=== PATIENT | female | born 1985 | race Two or more races ===

== ENCOUNTER 2019-04-14 15:53 | Emergency (ER) | payer BC, MEDICARE, OTHER, MEDICAID ==
--- NOTE | 2019-04-14 16:07 | ER Document Report ---
ED Medical Screen (RME) - General Chief Complaint: Leg Pain Stated Complaint: LEFT LEG PAIN Time Seen by Provider: 04/14/19 16:05 Primary Care Provider: JOSE E NUÑEZ MD [Primary Care Provider] - Follow up as needed - [facility] Notes: 04/14/19 16:05 Patient is a 34-year-old female who presents complaining of left anterior lower barron pain that is been ongoing for a week. Denies injury. Patient is able to ambulate without difficulty. No history of DVT. Patient does not have any posterior calf tenderness or medial leg pain. Pain is specifically to the anterior lower leg. No fever. No known injury. I have treated and performed a rapid initial assessment of this patient. A comprehensive ED assessment and evaluation of the patient, analysis of test results and completion of medical decision making process will be conducted by additional ED providers. PHYSICAL EXAMINATION: GENERAL: Well-appearing, well-nourished and in no acute distress. A&Ox4. Answers questions appropriately. Lt leg: there is pinpoint tenderness to the lower anterior leg to the tibia itself. Nothing medially or posteriorly to the leg. N/V intact distal. No LE asymmetry. Lula neg b/l. She does have varicose veins right in the spot of reproducibility. No erythema. - Related Data Allergies/Adverse Reactions: No Known Allergies Allergy (Verified 04/14/19 16:03) Physical Exam - Vital signs Vitals: Temp Pulse Resp BP Pulse Ox 98.1 F 85 18 113/74 97 04/14/19 15:58 04/14/19 15:58 04/14/19 15:58 04/14/19 15:58 04/14/19 15:58 Course - Vital Signs Vital signs: Temp Pulse Resp BP Pulse Ox 98.1 F 85 18 113/74 97 04/14/19 15:58 04/14/19 15:58 04/14/19 15:58 04/14/19 15:58 04/14/19 15:58 Doctor's Discharge - Discharge Referrals: JOSE E NUÑEZ MD [Primary Care Provider] - Follow up as needed
--- NOTE | 2019-04-14 17:02 | RADIOLOGY REPORT (SQ) ---
EXAM DESCRIPTION: TIBIA FIBULA LEFT COMPLETED DATE/TIME: 04/14/2019 4:37 pm REASON FOR STUDY: lower anterior leg pain COMPARISON: None. NUMBER OF VIEWS: Four views. TECHNIQUE: Two radiographic images acquired of the left tibia and fibula to include the knee and ank le in at least one projection. LIMITATIONS: None. FINDINGS: MINERALIZATION: Normal. BONES: No acute fracture or dislocation. No worrisome bone lesions. SOFT TISSUES: No obvious swelling or foreign body. OTHER: Mild to moderate degenerative changes are seen of the knee. IMPRESSION: No acute osseous injury. 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 TECHNICAL DOCUMENTATION: JOB ID: [id number]- All Rights Reserved Reading location - IP/workstation name: [email or web address]
--- NOTE | 2019-04-14 18:50 | ER Document Report ---
HPI - HPI Time Seen by Provider: 04/14/19 16:05 Pain Level: 2 Notes: Patient is a 34-year-old female who presents complaining of left anterior lower barron pain that is been ongoing for a week. Denies injury. Patient is able to ambulate without difficulty. No history of DVT. Patient does not have any posterior calf tenderness or medial leg pain. Pain is specifically to the anterior lower leg. No fever. No known injury. Past Medical History - General Information source: Patient - Social History Smoking Status: Never Smoker Frequency of alcohol use: None Drug Abuse: None Family History: Reviewed & Not Pertinent Patient has suicidal ideation: No Patient has homicidal ideation: No - Medical History Medical History: Negative Surgical Hx: Negative - Immunizations Immunizations up to date: Yes Vertical Provider Document - CONSTITUTIONAL Notes: PHYSICAL EXAMINATION: GENERAL: Well-appearing, well-nourished and in no acute distress. HEAD: Atraumatic, normocephalic. EYES: Pupils equal round extraocular movements intact, conjunctiva are normal. ENT: Nares patent NECK: Normal range of motion LUNGS: No respiratory distress Musculoskeletal: Normal range of motion, tenderness to palpation to anterior left barron. No edema, erythema or ecchymosis. NEUROLOGICAL: Normal speech, normal gait. PSYCH: Normal mood, normal affect. SKIN: Warm, Dry, normal turgor, no rashes or lesions noted. Varicose vein noted to anterior left barron. Course - Re-evaluation Re-evalutation: Tibia/Fibula X-Ray 04/14/19 16:05 IMPRESSION: No acute osseous injury. 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 - Vital Signs Vital signs: Temp Pulse Resp BP Pulse Ox 98.1 F 85 18 113/74 97 04/14/19 15:58 04/14/19 15:58 04/14/19 15:58 04/14/19 15:58 04/14/19 15:58 Discharge - Discharge Clinical Impression: Pain in left barron Condition: Stable Disposition: HOME, SELF-CARE Additional Instructions: Please try taking ibuprofen 600 mg every 6 hours for your barron pain. Consider wearing supportive socks. The x-rays today were negative. Your pain persists please contact orthopedics to follow-up with them. Referrals: MEDHAT QUINTANILLA MD [ACTIVE PROVISIONAL STAFF] - Follow up as needed ISAAC SCHULZ MD [ACTIVE STAFF] - Follow up as needed LIV MARTINEZ MD [NO LOCAL MD] - Follow up as needed
[2019-04-14 19:06] VITALS: BP 110/70
== END 2019-04-14 19:07 | disposition home or self-care (01) ==
LOC: ER 15:53
DX: Z53.21 Procedure and treatment not carried out due to patient leaving prior to being seen by health care provider (principal); M79.605 Pain in left leg

== ENCOUNTER → 2019-08-07 | Outpatient (CLI) | payer BC, MEDICARE, OTHER, MEDICAID ==
--- NOTE | 2019-08-08 17:06 | RADIOLOGY REPORT (SQ) ---
EXAM DESCRIPTION: MRI LT LOWER JOINT WITHOUT COMPLETED DATE/TIME: 08/07/2019 7:44 pm REASON FOR STUDY: M25.562 PAIN IN LEFT KNEE M25.562 PAIN IN LEFT KNEE COMPARISON: None. TECHNIQUE: Leftknee images acquired and stored on PACS. Multiplanar images include fat sensitive se quences as T1, water sensitive sequences as FST2 or STIR, cartilage sensitive sequences as FSPD, and gradient echo sequences. LIMITATIONS: None. FINDINGS: JOINT AND BURSAE: Small joint effusion. No popliteal cyst. BONE CORTEX AND MARROW: No alteration of signal to suggest marrow replacement. No worrisome bone lesi ons. No occult fracture. ACL: Intact. No degeneration or ganglion cyst. PCL: Intact. MCL: Intact. No periligamentous edema or fluid. LCL: Intact. No periligamentous edema or fluid. MEDIAL MENISCUS: Flap tear posterior horn without displacement. LATERAL MENISCUS: Flap tear posterior horn without displacement. MEDIAL COMPARTMENT: Cartilage preserved. No bone bruises or reactive marrow edema. No osteophytes. LATERAL COMPARTMENT: Cartilage preserved. No bone bruises or reactive marrow edema. No osteophytes. PATELLA: Marked patellofemoral osteophytes with marked chondromalacia and loss of trochlear cartilage . EXTENSOR MECHANISM: Intact. Quadriceps and patella tendons normal. SOFT TISSUES: Adjacent muscles and subcutaneous tissues normal. Normal flow void in popliteal artery and vein. OTHER: No other significant finding. IMPRESSION: Marked patellofemoral degenerative changes. Bilateral flap tear is of the posterior horns of both the medial and lateral meniscus. No significant degenerative changes of the medial or lateral compartments. TECHNICAL DOCUMENTATION: JOB ID: [id number]- All Rights Reserved Reading location - IP/workstation name: [email or web address]
== END ==
LOC: RAD 16:39
PROVIDERS: ATTEND Orthopaedic Surgery
DX: S83.242A Other tear of medial meniscus, current injury, left knee, initial encounter (principal); S83.282A Other tear of lateral meniscus, current injury, left knee, initial encounter; X58.XXXA Exposure to other specified factors, initial encounter; M25.562 Pain in left knee